=== PATIENT | female | born 1975 | race Caucasian/White ===

== ENCOUNTER 2019-08-03 15:00 | Emergency (ER) | payer OTHER, MEDICAID, SELFPAY ==
[2019-08-03 15:22] VITALS: BP 150/94; PULSE 87; RESP 16; TEMP 37.1; O2SAT 100; BMI 31.9
--- NOTE | 2019-08-03 15:37 | DI.RAD.S_ITS ---
PROCEDURE: XR CHEST 2V INDICATIONS: chest pain / shortness of breath. TECHNIQUE: 2 views of the chest were acquired. COMPARISON: [facility], CHEST 2 VIEW, 08/17/2010, 8:08. [facility], CHEST 2 VIEW, 01/27/2012, 11:26. [facility], CHEST 1 VIEW, 01/26/2012, 4:07. [facility], CHEST 2 VIEW, 08/07/2014, 16:39. FINDINGS: Hair artifact can be seen. Surgical changes and devices: None. Lungs and pleura: Lungs are clear. No pleural effusions or pneumothorax. Mediastinum: Mediastinal contours are normal. Heart size is normal. Bones and chest wall: No suspicious bony abnormalities. Soft tissues appear unremarkable. IMPRESSION: Normal chest plain films. Dictated by: Donal Mcarthur M.D. on 08/03/2019 at 15:07 Approved by: Donal Mcartuhr M.D. on 08/03/2019 at 15:08
[2019-08-03 15:47] LABS: Add Manual Diff / Slide Review NO; Basophils Absolute Auto 100 /uL (0-100); Basophils Percent Auto 1.8 % (0-2); Eosinophils Absolute Auto 200 /uL (0-450); Eosinophils Percent Auto 2.7 % (2-4); Hematocrit 26.8 % (36-46); Hemoglobin 8.1 g/dL (12.0-16.0); Lymphocytes Absolute Auto 2100 /uL (1100-4500); Lymphocytes Percent Auto 29.2 % (25-40); Mean Corpuscular HGB Conc 30.2 % (30-36); Mean Corpuscular Hemoglobin 17.3 PG (26-34); Mean Corpuscular Volume 57.3 fL (80-100); Monocytes Absolute Auto 600 /uL (0-900); Monocytes Percent Auto 9.1 % (3-14); Neutrophils Absolute Auto 4100 /uL (1500-7000); Neutrophils Percent Auto 57.2 % (50-75); Platelet Count 498 X10^3/uL (150-400); Red Blood Cell Count 4.69 X10^6/uL (4.0-5.2); Red Cell Distribution Width 18.8 % (11.6-14.8); White Blood Cell Count 7.1 X10^3/uL (4.5-11.0)
[2019-08-03 15:52] LABS: INR 1.1 (0.9-1.3); Prothrombin Time 12.3 SECONDS (10.1-12.7)
[2019-08-03 15:55] LABS: PTT Partial Thromboplastin Tim 30 SECONDS (26.4-36.2)
--- NOTE | 2019-08-03 15:56 | ED_ITS ---
HPI - SOB/Dyspnea <Angy Juarez, DO - Last Filed: 08/04/19 08:37> General Chief Complaint: Shortness of Breath/Dyspnea Stated Complaint: sob/RLQ pain/palps x3 days ago Time Seen by Provider: 08/03/19 15:55 Source: patient Mode of arrival: Ambulatory Limitations: no limitations History of Present Illness HPI Narrative: This is a 43-year-old female comes to the emergency department with complaint of shortness of breath, chest pain, right upper and right back pain for the past 3 days. Patient states symptoms started the she states that the chest pain and shortened breath have been sort of intermittent, not really associated with thing specific, she states shortness breath might be associated with activity. Nothing seems to make either 1 better. Patient states she has had also some upper back and right upper abdominal pain which he states feels similar to a culture she had the past although that episode was a little bit higher up. Patient states that the upper abdominal back pain has been constant. It feels similar to when she had an ulcer. She states that she has not had back pain in the past. She typically feels cold, she denies any fevers or chills, she denies any upper respiratory cold cough for congestion symptoms. Denies any nausea no vomiting she denies any dizziness or lightheadedness or syncope. She states she has had some watery stools for the past 3 days but no bright red blood or diarrhea. She denies any urinary symptoms. Patient has a history of alpha thalassemia, she states it was found during for genetic testing and that she never saw a ict business analyst or had any follow-up. She states that she has iron intermittently. Patient does take medication also for hypertension, she has had a cholecystectomy, appendectomy and x3 as well as a right shoulder repair. Denies tobacco, alcohol or illicit. Related Data Home Medications Medication Instructions Recorded Confirmed ferrous sulfate 325 mg PO BID 08/03/19 08/03/19 lisinopril 20 mg PO DAILY 08/03/19 08/03/19 Allergies Allergy/AdvReac Type Severity Reaction Status Date / Time latex [LATEX] Allergy Mild HIVES Verified 08/03/19 15:42 Sulfa (Sulfonamide Allergy Mild URTICARIA Verified 08/03/19 15:42 Antibiotics) [SULFA (SULFONAMIDE ANTIBIOTICS)] oxycodone [OXYCODONE] Allergy Unknown Verified 08/03/19 15:42 diphenhydramine AdvReac Intermediate CHF Verified 08/03/19 15:42 [DIPHENHYDRAMINE] ibuprofen [IBUPROFEN] AdvReac Mild GI Verified 08/03/19 15:42 INTOLERANCE Review of Systems <Angy Juarez DO - Last Filed: 08/04/19 08:37> Review of Systems ROS Unobtainable: All systems reviewed & are unremarkable except as noted in HPI and below Patient History <Angy Juarez DO - Last Filed: 08/04/19 08:37> Medical History (Updated 08/03/19 @ 18:16 by Angy Juarez DO) Alpha thalassemia (Acute) Anemia (Acute) Frequent urination (Acute) Heartburn (Acute) Hypertension (Acute) Surgical History (Updated 08/03/19 @ 16:19 by Angy Juarez DO) Hx of appendectomy (Acute) Hx of cholecystectomy (Acute) S/P (Acute) Social History (Updated 08/03/19 @ 16:20 by Angy Juarez DO) Smoking Status: Never smoker alcohol intake: never substance use type: does not use Substance Use Type: does not use Exam <Angy Juarez DO - Last Filed: 08/04/19 08:37> Narrative Exam Narrative: GENERAL: Alert and oriented x three, well-nourished, well- appearing female in mild distress. HEENT: Head normocephalic, atraumatic, EOMI, pupils reactive, face symmetric, moist mucous membranes NECK: Supple, full range of motion CARDIOVASCULAR: Regular rate and rhythm without murmurs, rubs or gallops. RESPIRATORY: Breath sounds equal bilaterally, no wheezes rales or rhonchi. No tachypnea. No accessory muscle use. ABDOMEN: Soft, nontender. Normoactive bowel sounds all 4 quadrants. No guarding or rebound, rigidity, no mass : No CVA tenderness EXTREMITIES: Normal range of motion, no clubbing or edema. Neurovascularly intact NEUROLOGICAL: Cranial nerves II through XII grossly intact. Moving all extremities SKIN: Warm, dry, no petechiae, no rashes or lesions. Initial Vital Signs Initial Vital Signs: Vital Signs Temperature 98.8 F 08/03/19 15:22 Pulse Rate 87 08/03/19 15:22 Respiratory Rate 16 08/03/19 15:22 Blood Pressure 150/94 H 08/03/19 15:22 Pulse Oximetry 100 08/03/19 15:22 <Con Hardwick DO - Last Filed: 08/04/19 08:37> Initial Vital Signs Initial Vital Signs: Vital Signs Temperature 98.8 F 08/03/19 15:22 Pulse Rate 87 08/03/19 15:22 Respiratory Rate 16 08/03/19 15:22 Blood Pressure 150/94 H 08/03/19 15:22 Pulse Oximetry 100 08/03/19 15:22 Course <Angy Juarez DO - Last Filed: 08/04/19 08:37> Orders Ordered: Discontinued Medications Sodium Chloride (Normal Saline 0.9%) 1,000 mls @ 1,000 mls/hr IV BOLUS ONE Stop: 08/03/19 17:14 Last Infusion: 08/03/19 17:45 Dose: 0 mls/hr Documented by: Admin: 08/03/19 16:20 Dose: 1,000 mls/hr Documented by: SHUKRI Ketorolac Tromethamine (Toradol) 15 mg IV NOW ONE Stop: 08/03/19 17:32 Last Admin: 08/03/19 17:45 Dose: 15 mg Documented by: SHUKRI Vital Signs Vital signs: Vital Signs - 8 hr 08/03/19 15:22 08/03/19 16:00 08/03/19 17:49 Temperature 98.8 F Pulse Rate 87 73 74 Respiratory Rate 16 24 20 Blood Pressure 150/94 H Blood Pressure [Left Arm] 115/72 122/65 Pulse Oximetry 100 95 96 <Con Hardwick DO - Last Filed: 08/04/19 08:37> Orders Ordered: Discontinued Medications Sodium Chloride (Normal Saline 0.9%) 1,000 mls @ 1,000 mls/hr IV BOLUS ONE Stop: 08/03/19 17:14 Last Infusion: 08/03/19 17:45 Dose: 0 mls/hr Documented by: Admin: 08/03/19 16:20 Dose: 1,000 mls/hr Documented by: SHUKRI Ketorolac Tromethamine (Toradol) 15 mg IV NOW ONE Stop: 08/03/19 17:32 Last Admin: 08/03/19 17:45 Dose: 15 mg Documented by: SHUKRI Vital Signs Vital signs: Vital Signs - 8 hr 08/03/19 15:22 08/03/19 16:00 08/03/19 17:49 Temperature 98.8 F Pulse Rate 87 73 74 Respiratory Rate 16 24 20 Blood Pressure 150/94 H Blood Pressure [Left Arm] 115/72 122/65 Pulse Oximetry 100 95 96 MDM - SOB/Dyspnea <Angy Juarez DO - Last Filed: 08/04/19 08:37> Lab Data Attestation: I reviewed the patient's lab results. Result diagrams: 08/03/19 15:35 08/03/19 15:35 Labs: Lab Results 08/03/19 08/03/19 08/03/19 Range/Units 15:35 15:35 15:35 WBC 7.1 (4.5-11.0) X10^3/uL RBC 4.69 (4.0-5.2) X10^6/uL Hgb 8.1 L (12.0-16.0) g/dL Hct 26.8 L (36-46) % MCV 57.3 L (80-100) fL MCH 17.3 L (26-34) PG MCHC 30.2 (30-36) % RDW 18.8 H (11.6-14.8) % Plt Count 498 H (150-400) X10^3/uL Neut % (Auto) 57.2 (50-75) % Lymph % (Auto) 29.2 (25-40) % [place] % (Auto) 9.1 (3-14) % Eos % (Auto) 2.7 (2-4) % Baso % (Auto) 1.8 (0-2) % Neut # (Auto) 4100 (4446-1958) /uL Lymph # (Auto) 2100 (9050-5378) /uL [place] # (Auto) 600 (0-900) /uL Eos # (Auto) 200 (0-450) /uL Baso # (Auto) 100 (0-100) /uL RBC Morphology See below Poikilocytosis 2+ H Anisocytosis 1+ H Microcytosis 2+ H Ovalocytes 1+ H PT 12.3 (10.1-12.7) SECONDS INR 1.1 (0.9-1.3) APTT 30 (26.4-36.2) SECONDS Sodium 137 (137-145) mmol/L Potassium 4.1 (3.4-5.1) mmol/L Chloride 105 (98-107) mmol/L Carbon Dioxide 23 (22-32) mmol/L BUN 13 (7-17) mg/dL Creatinine 0.80 (0.52-1.04) mg/dL Estimated GFR > 60.0 (>60) mL/min BUN/Creatinine Ratio 16.3 (6-22) Glucose 103 H (70-100) mg/dL Calcium 8.9 (8.4-10.2) mg/dL Total Bilirubin 0.3 (0.2-1.3) mg/dL AST 19 (14-36) IU/L ALT 20 (9-52) IU/L Alkaline Phosphatase 56 (38-126) U/L Total Creatine Kinase 44 (30-135) U/L CK-MB (CK-2) TNP CK-MB (CK-2) Rel Index TNP Troponin I < 0.012 (0.01-0.034) ng/mL Total Protein 7.6 (6.3-8.2) g/dL Albumin 4.4 (3.5-5.0) g/dL Globulin 3.2 (1.7-4.1) g/dL Albumin/Globulin Ratio 1.4 (1.0-2.8) Lipase 170 (23-300) U/L Point of Care Testing Test Results Negative Urine Dip Bedside Urine Glucose Negative Bedside Urine Bilirubin - Negative Bedside Urine Ketone - Negative Urine Specific [place] 1.020 Bedside Urine Occult Blood - Negative Bedside Urine pH 6.0 Bedside Urine Protein - Negative Bedside Urine Urobilinogen +/- 1mg Bedside Urine Nitrite - Negative Bedside Urine Leukocytes - Negative Esterase Imaging Data Chest x-ray: Radiologist's impression: Tate Duran 43 F [address] [address] XRay Report Signed Patient: Tate Duran LMR#: [id number] : 1975Acct:[id number] Age/Sex: 43 / FDate of Service: 08/03/19 Loc: ED Accession Number: [id number] Procedure: XR chest 2V Ordering Provider: Angy Juarez D.O. PROCEDURE: XR CHEST 2V INDICATIONS: chest pain / shortness of breath. TECHNIQUE: 2 views of the chest were acquired. [facility] 8[facility] 01/27/2012, 11:26[facility], 01/26/2012, 4:07[facility] CHEST [facility], 08/07/2014, 16:39. FINDINGS: Hair artifact can be seen. Surgical changes and devices: None. Lungs and pleura: Lungs are clear. No pleural effusions or pneumothorax. Mediastinum: Mediastinal contours are normal. Heart size is normal. Bones and chest wall: No suspicious bony abnormalities. Soft tissues appear unremarkable. IMPRESSION: Normal chest plain films. Dictated by: Donal Mcarthur M.D. on 08/03/2019 at 15:07 Approved by: Donal Mcarthur M.D. on 08/03/2019 at 15:08 US - abdomen: Radiologist's impression: [place] [address] Ultrasound Report Signed Patient: Tate Duran LMR#: [id number] : 1975Acct:[id number] Age/Sex: 43 / FDate of Service: 08/03/19 Loc: ED Accession Number: [id number] Procedure: US abdomen complete Ordering Provider: Angy Juarez D.O. PROCEDURE: US ABDOMEN COMPLETE INDICATIONS: PAIN TECHNIQUE: Real-time scanning was performed of the abdominal and retroperitoneal organs, with image documentation. COMPARISON: [facility], CT, ABDOMEN/PELVIS WITH CONTRAST, 10/27/2011, 11:03. [facility], , XR CHEST 2V, 08/03/2019, 15:38. FINDINGS: Liver: Liver is normal in size and homogeneous in echotexture. Gallbladder: Removed. Biliary ducts: Intrahepatic bile ducts are non-dilated. Extrahepatic bile duct caliber measures 4 mm. Normal is 6-7 mm or less in diameter, or 10 mm or less post-cholecystectomy. Pancreas: Not seen, obscured by overlying bowel gas. Spleen: Not seen, obscured by overlying bowel gas. Kidneys: Kidneys are normal in size and echotexture. Right kidney measures 13.1 cm long; left kidney measures 13 cm long. No hydronephrosis or nephrolithiasis. No solid masses. Aorta: Visualized aorta is normal in caliber at less than 3 cm. Iliacs: Proximal common iliac arteries are normal in caliber at less than 2.5 cm. IVC: Intrahepatic inferior vena cava is patent. Miscellaneous: No free abdominal fluid. IMPRESSION: Status post cholecystectomy, without biliary dilatation. No imaging explanation is found for this patient's presenting symptoms. Limited study, without visualization of the pancreas or the spleen. Dictated by: Donal Mcarthur M.D. on 08/03/2019 at 16:04 Approved by: Donal Mcarthur M.D. on 08/03/2019 at 16:05 ECG Data Attestation: I personally reviewed and interpreted this ECG as follows: Prior ECG tracings: available for review Interpretation: Sinus rhythm rate of 79 RI 144 QRS 89 and QTC of 419. No ST changes appreciated. RSR in V1. Patient has prior EKG from 08/07/2014 which appears similar. MDM Narrative Medical decision making narrative: Patient's hemoglobin is 8.1 this is improved for her most recent which was in the 7.5 range, white count is 7.1, platelets are 498. Patient's has a microcytic anemia. Negative, CMP shows a glucose of 103 with otherwise normal lab values, troponin is negative. Patient's chest x- ray is negative with an ultrasound does not show any acute findings although difficult to visualize pancreas and spleen. Patient initially deferred any medication but is not often little bit more comfortable and given a dose of Toradol. Her urine is negative for , poc urine shows urobiligen with no other changes. Exact source of patient's discomfort is not found on my suspicion for cardiac, pulmonary or acute chest syndrome is low. Patient has thalassemia sounds like it is not severe but she has seen a ict business analyst before and feel like she may benefit from a consultation. I spoke with Dr. Wilkins and he feels she would benefit from evaluation and asks for her to call the office to get set up for an appointment. <Con Hardwick, DO - Last Filed: 08/04/19 08:37> Lab Data Labs: Lab Results 10/08/03/19 08/03/19 Range/Units 15:35 15:35 15:35 WBC 7.1 (4.5-11.0) X10^3/uL RBC 4.69 (4.0-5.2) X10^6/uL Hgb 8.1 L (12.0-16.0) g/dL Hct 26.8 L (36-46) % MCV 57.3 L (80-100) fL MCH 17.3 L (26-34) PG MCHC 30.2 (30-36) % RDW 18.8 H (11.6-14.8) % Plt Count 498 H (150-400) X10^3/uL Neut % (Auto) 57.2 (50-75) % Lymph % (Auto) 29.2 (25-40) % [place] % (Auto) 9.1 (3-14) % Eos % (Auto) 2.7 (2-4) % Baso % (Auto) 1.8 (0-2) % Neut # (Auto) 4100 (6170-7548) /uL Lymph # (Auto) 2100 (6166-8544) /uL [place] # (Auto) 600 (0-900) /uL Eos # (Auto) 200 (0-450) /uL Baso # (Auto) 100 (0-100) /uL RBC Morphology See below Poikilocytosis 2+ H Anisocytosis 1+ H Microcytosis 2+ H Ovalocytes 1+ H PT 12.3 (10.1-12.7) SECONDS INR 1.1 (0.9-1.3) APTT 30 (26.4-36.2) SECONDS Sodium 137 (137-145) mmol/L Potassium 4.1 (3.4-5.1) mmol/L Chloride 105 (98-107) mmol/L Carbon Dioxide 23 (22-32) mmol/L BUN 13 (7-17) mg/dL Creatinine 0.80 (0.52-1.04) mg/dL Estimated GFR > 60.0 (>60) mL/min BUN/Creatinine Ratio 16.3 (6-22) Glucose 103 H (70-100) mg/dL Calcium 8.9 (8.4-10.2) mg/dL Total Bilirubin 0.3 (0.2-1.3) mg/dL AST 19 (14-36) IU/L ALT 20 (9-52) IU/L Alkaline Phosphatase 56 (38-126) U/L Total Creatine Kinase 44 (30-135) U/L CK-MB (CK-2) TNP CK-MB (CK-2) Rel Index TNP Troponin I < 0.012 (0.01-0.034) ng/mL Total Protein 7.6 (6.3-8.2) g/dL Albumin 4.4 (3.5-5.0) g/dL Globulin 3.2 (1.7-4.1) g/dL Albumin/Globulin Ratio 1.4 (1.0-2.8) Lipase 170 (23-300) U/L Point of Care Testing Test Results Negative Urine Dip Bedside Urine Glucose Negative Bedside Urine Bilirubin - Negative Bedside Urine Ketone - Negative Urine Specific [place] 1.020 Bedside Urine Occult Blood - Negative Bedside Urine pH 6.0 Bedside Urine Protein - Negative Bedside Urine Urobilinogen +/- 1mg Bedside Urine Nitrite - Negative Bedside Urine Leukocytes - Negative Esterase Discharge Plan Departure Patient Disposition: Home Clinical Impression: Thalassemia, Atypical chest pain Discharge Date/Time: 08/03/19 18:27 Instructions: DI for Atypical Chest Pain Activity Restrictions/Additional Instructions: Follow up with hematology, call 's office for evaluation of her thalassemia. Call in the morning for an appointment let them know that Dr. Wilkins is happy to see you. Continue home medications as prescribed. You may take Tylenol up to a 1000 mg every 8 hours, and or ibuprofen up to 800 mg every 8 hours. Return to the emergency department for fevers greater 100.4 F, passing out, rapidly worsening chest or abdominal pain, persistent vomiting, black or bloody stools, new weakness, numbness or other new or concerning symptoms. Prescriptions: No Action lisinopril 20 mg tablet 20 mg PO DAILY RF: 0 ferrous sulfate 325 mg (65 mg iron) Tablet 325 mg PO BID RF: 0 Referrals: Yareli Wilkins MD [Physician] - Cecil Polanco MD [Primary Care Provider] -
[2019-08-03 15:59] LABS: Alanine Aminotransferase 20 IU/L (9-52); Albumin 4.4 g/dL (3.5-5.0); Albumin Globulin Ratio 1.4 (1.0-2.8); Alkaline Phosphatase 56 U/L (38-126); Aspartate Aminotransferase 19 IU/L (14-36); BUN Creatinine Ratio 16.3 (6-22); Bilirubin Total 0.3 mg/dL (0.2-1.3); Blood Urea Nitrogen 13 mg/dL (7-17); Calcium 8.9 mg/dL (8.4-10.2); Carbon Dioxide 23 mmol/L (22-32); Chloride 105 mmol/L (98-107); Creatine Kinase 44 U/L (30-135); Estimated Glomerular Filt Rate > 60.0 mL/min (>60); Globulin 3.2 g/dL (1.7-4.1); Glucose 103 mg/dL (70-100); HEMOLYSIS < 15 (0-50); Lipase 170 U/L (23-300); Potassium 4.1 mmol/L (3.4-5.1); Sodium 137 mmol/L (137-145); Total Protein 7.6 g/dL (6.3-8.2)
[2019-08-03 16:00] VITALS: BP 115/72; PULSE 73; RESP 24; O2SAT 95
[2019-08-03 16:10] LABS: Anisocytosis 1+; Microcytosis 2+; Ovalocytes 1+; Poikilocytosis 2+
[2019-08-03 16:11] LABS: Troponin I < 0.012 ng/mL (0.01-0.034)
--- NOTE | 2019-08-03 16:14 | DI.US.S_ITS ---
PROCEDURE: US ABDOMEN COMPLETE INDICATIONS: PAIN TECHNIQUE: Real-time scanning was performed of the abdominal and retroperitoneal organs, with image documentation. COMPARISON: [facility], CT, ABDOMEN/PELVIS WITH CONTRAST, 10/27/2011, 11:03. [facility], CR, XR CHEST 2V, 08/03/2019, 15:38. FINDINGS: Liver: Liver is normal in size and homogeneous in echotexture. Gallbladder: Removed. Biliary ducts: Intrahepatic bile ducts are non-dilated. Extrahepatic bile duct caliber measures 4 mm. Normal is 6-7 mm or less in diameter, or 10 mm or less post-cholecystectomy. Pancreas: Not seen, obscured by overlying bowel gas. Spleen: Not seen, obscured by overlying bowel gas. Kidneys: Kidneys are normal in size and echotexture. Right kidney measures 13.1 cm long; left kidney measures 13 cm long. No hydronephrosis or nephrolithiasis. No solid masses. Aorta: Visualized aorta is normal in caliber at less than 3 cm. Iliacs: Proximal common iliac arteries are normal in caliber at less than 2.5 cm. IVC: Intrahepatic inferior vena cava is patent. Miscellaneous: No free abdominal fluid. IMPRESSION: Status post cholecystectomy, without biliary dilatation. No imaging explanation is found for this patient's presenting symptoms. Limited study, without visualization of the pancreas or the spleen. Dictated by: Donal Mcarthur M.D. on 08/03/2019 at 16:04 Approved by: Donal Mcarthur M.D. on 08/03/2019 at 16:05
[2019-08-03] MEDS: SODIUM CHLORIDE 0.9% 1,000 ML 1000 ML IV (16:20)
--- NOTE | 2019-08-03 16:39 | PC.NURSE ---
pt reports she has h/o alpha thalessemia. onset of abd pain SOB started yesterday after a visit with PCP for well check. appears well. states shes mildly nauseated but does not vomit due to h/o lap band surgery, having diffuse abd pain. Lungs clear. IV obtained and labs sent and Hgb 8.1 which is increased since her last value of 7.4. appears in good color. attached to cardiac monitoring. US in room for abd US. pt made aware of need of urine. IVF infusing. NAD
[2019-08-03] MEDS: KETOROLAC 60 MG/2 ML VIAL 15 MG IV (17:45)
[2019-08-03 17:49] VITALS: BP 122/65; PULSE 74; RESP 20; O2SAT 96
--- NOTE | 2019-09-26 07:47 | ED.SOB ---
HPI - SOB/Dyspnea General Chief Complaint: Shortness of Breath/Dyspnea Stated Complaint: sob/RLQ pain/palps x3 days ago Time Seen by Provider: 08/03/19 15:55 Source: patient Mode of arrival: Ambulatory Limitations: no limitations History of Present Illness HPI Narrative: Patient was seen by myself on 08/03/19. I do recall seeing the patient. She had complaints of SOB, weakness and chest/abd/back discomfort. Patient was diagnosed during a prior . Unfortunately the initial note was cancelled/deleted and I do not recall the exact details of this encounter in terms of ROS, exam, HPI. Patient was referred to hem/oncology for further evaluation and recommendations, see below in MDM. Related Data Home Medications Medication Instructions Recorded Confirmed ferrous sulfate 325 mg PO BID 08/03/19 08/03/19 lisinopril 20 mg PO DAILY 08/03/19 08/03/19 Allergies Allergy/AdvReac Type Severity Reaction Status Date / Time latex [LATEX] Allergy Mild HIVES Verified 08/03/19 15:42 Sulfa (Sulfonamide Allergy Mild URTICARIA Verified 08/03/19 15:42 Antibiotics) [SULFA (SULFONAMIDE ANTIBIOTICS)] oxycodone [OXYCODONE] Allergy Unknown Verified 08/03/19 15:42 diphenhydramine AdvReac Intermediate CHF Verified 08/03/19 15:42 [DIPHENHYDRAMINE] ibuprofen [IBUPROFEN] AdvReac Mild GI Verified 08/03/19 15:42 INTOLERANCE Patient History Medical History (Updated 08/18/19 @ 00:00 by ) Alpha thalassemia (Acute) Anemia (Acute) Frequent urination (Acute) Heartburn (Acute) Hypertension (Acute) Surgical History (Updated 08/03/19 @ 16:19 by Angy Juarez DO) Hx of appendectomy (Acute) Hx of cholecystectomy (Acute) S/P (Acute) Social History (Updated 08/03/19 @ 16:20 by Angy Juarez DO) Smoking Status: Never smoker alcohol intake: never substance use type: does not use Smoking Status: Never smoker Substance Use Type: does not use Exam Initial Vital Signs Initial Vital Signs: Vital Signs Temperature 98.8 F 08/03/19 15:22 Pulse Rate 87 08/03/19 15:22 Respiratory Rate 16 08/03/19 15:22 Blood Pressure 150/94 H 08/03/19 15:22 Pulse Oximetry 100 08/03/19 15:22 Course Orders Ordered: Discontinued Medications Sodium Chloride (Normal Saline 0.9%) 1,000 mls @ 1,000 mls/hr IV BOLUS ONE Stop: 08/03/19 17:14 Last Infusion: 08/03/19 17:45 Dose: 0 mls/hr Documented by: Admin: 08/03/19 16:20 Dose: 1,000 mls/hr Documented by: SHUKRI Ketorolac Tromethamine (Toradol) 15 mg IV NOW ONE Stop: 08/03/19 17:32 Last Admin: 08/03/19 17:45 Dose: 15 mg Documented by: SHUKRI MDM - SOB/Dyspnea Lab Data Attestation: I reviewed the patient's lab results. Result diagrams: 08/03/19 15:35 08/03/19 15:35 Labs: Lab Results 08/03/19 08/03/19 08/03/19 Range/Units 15:35 15:35 15:35 WBC 7.1 (4.5-11.0) X10^3/uL RBC 4.69 (4.0-5.2) X10^6/uL Hgb 8.1 L (12.0-16.0) g/dL Hct 26.8 L (36-46) % MCV 57.3 L (80-100) fL MCH 17.3 L (26-34) PG MCHC 30.2 (30-36) % RDW 18.8 H (11.6-14.8) % Plt Count 498 H (150-400) X10^3/uL Neut % (Auto) 57.2 (50-75) % Lymph % (Auto) 29.2 (25-40) % [place] % (Auto) 9.1 (3-14) % Eos % (Auto) 2.7 (2-4) % Baso % (Auto) 1.8 (0-2) % Neut # (Auto) 4100 (8089-4466) /uL Lymph # (Auto) 2100 (9757-2757) /uL [place] # (Auto) 600 (0-900) /uL Eos # (Auto) 200 (0-450) /uL Baso # (Auto) 100 (0-100) /uL RBC Morphology See below Poikilocytosis 2+ H Anisocytosis 1+ H Microcytosis 2+ H Ovalocytes 1+ H PT 12.3 (10.1-12.7) SECONDS INR 1.1 (0.9-1.3) APTT 30 (26.4-36.2) SECONDS Sodium 137 (137-145) mmol/L Potassium 4.1 (3.4-5.1) mmol/L Chloride 105 (98-107) mmol/L Carbon Dioxide 23 (22-32) mmol/L BUN 13 (7-17) mg/dL Creatinine 0.80 (0.52-1.04) mg/dL Estimated GFR > 60.0 (>60) mL/min BUN/Creatinine Ratio 16.3 (6-22) Glucose 103 H (70-100) mg/dL Calcium 8.9 (8.4-10.2) mg/dL Total Bilirubin 0.3 (0.2-1.3) mg/dL AST 19 (14-36) IU/L ALT 20 (9-52) IU/L Alkaline Phosphatase 56 (38-126) U/L Total Creatine Kinase 44 (30-135) U/L CK-MB (CK-2) TNP CK-MB (CK-2) Rel Index TNP Troponin I < 0.012 (0.01-0.034) ng/mL Total Protein 7.6 (6.3-8.2) g/dL Albumin 4.4 (3.5-5.0) g/dL Globulin 3.2 (1.7-4.1) g/dL Albumin/Globulin Ratio 1.4 (1.0-2.8) Lipase 170 (23-300) U/L Point of Care Testing Test Results Negative Urine Dip Bedside Urine Glucose Negative Bedside Urine Bilirubin - Negative Bedside Urine Ketone - Negative Urine Specific [place] 1.020 Bedside Urine Occult Blood - Negative Bedside Urine pH 6.0 Bedside Urine Protein - Negative Bedside Urine Urobilinogen +/- 1mg Bedside Urine Nitrite - Negative Bedside Urine Leukocytes - Negative Esterase Imaging Data Chest x-ray: Radiologist's impression: [address] [address] XRay Report Signed Patient: Tate Duran LMR#: [id number] : 1975Acct:[id number] Age/Sex: 43 / FDate of Service: 08/03/19 Loc: ED Accession Number: [id number] Procedure: XR chest 2V Ordering Provider: Angy Juarez D.O. PROCEDURE: XR CHEST 2V INDICATIONS: chest pain / shortness of breath. TECHNIQUE: 2 views of the chest were acquired. COMPARISON: [facility], CHEST 2 VIEW, 08/17/2010, 8:08. [facility], CHEST 2 VIEW, 01/27/2012, 11:26. [facility], CHEST 1 VIEW, 01/26/2012, 4:07. [facility], CHEST 2 VIEW, 08/07/2014, 16:39. FINDINGS: Hair artifact can be seen. Surgical changes and devices: None. Lungs and pleura: Lungs are clear. No pleural effusions or pneumothorax. Mediastinum: Mediastinal contours are normal. Heart size is normal. Bones and chest wall: No suspicious bony abnormalities. Soft tissues appear unremarkable. IMPRESSION: Normal chest plain films. Dictated by: Donal Mcarthur M.D. on 08/03/2019 at 15:07 Approved by: Donal Mcarthur M.D. on 08/03/2019 at 15:08 US - abdomen: Radiologist's impression: [place] [address] Ultrasound Report Signed Patient: Tate Duran LMR#: [id number] : 1975Acct:[id number] Age/Sex: 43 / FDate of Service: 08/03/19 Loc: ED Accession Number: [id number] Procedure: US abdomen complete Ordering Provider: Angy Juarez D.O. PROCEDURE: US ABDOMEN COMPLETE INDICATIONS: PAIN TECHNIQUE: Real-time scanning was performed of the abdominal and retroperitoneal organs, with image documentation. COMPARISON: [facility], CT, ABDOMEN/PELVIS WITH CONTRAST, 10/27/2011, 11:03. [facility], CR, XR CHEST 2V, 08/03/2019, 15:38. FINDINGS: Liver: Liver is normal in size and homogeneous in echotexture. Gallbladder: Removed. Biliary ducts: Intrahepatic bile ducts are non-dilated. Extrahepatic bile duct caliber measures 4 mm. Normal is 6-7 mm or less in diameter, or 10 mm or less post-cholecystectomy. Pancreas: Not seen, obscured by overlying bowel gas. Spleen: Not seen, obscured by overlying bowel gas. Kidneys: Kidneys are normal in size and echotexture. Right kidney measures 13.1 cm long; left kidney measures 13 cm long. No hydronephrosis or nephrolithiasis. No solid masses. Aorta: Visualized aorta is normal in caliber at less than 3 cm. Iliacs: Proximal common iliac arteries are normal in caliber at less than 2.5 cm. IVC: Intrahepatic inferior vena cava is patent. Miscellaneous: No free abdominal fluid. IMPRESSION: Status post cholecystectomy, without biliary dilatation. No imaging explanation is found for this patient's presenting symptoms. Limited study, without visualization of the pancreas or the spleen. Dictated by: Donal Mcarthur M.D. on 08/03/2019 at 16:04 Approved by: Donal Mcarthur M.D. on 08/03/2019 at 16:05 ECG Data Attestation: I personally reviewed and interpreted this ECG as follows: Prior ECG tracings: available for review Interpretation: sinus rhythm, rate of 79, pr of 144, qrs of 89, qtc of 442. NO ST elevation or depresion. RsR in V1. Patient has prior EKG from 08/07/[address]. MDM Narrative Medical decision making narrative: Patient labs were reviewed and reflect anemia, no priors available for comparison in computer. Patient HR and BP were appropriate in ED and not reflecting acute blood loss. Additional labs and imaging including EKG do not show acute process. I cannot recall all exact details of my encounter or discussion with patient but we did discuss the need for follow up with hematology for evaluation of her alpha thalasemia and that she may need some additional intervention, signs/symptoms to watch for and return. Dr. Wilkins from hematology/oncology was consulted and case discussed in order to set up patient for close follow up. Discharge Plan Departure Patient Disposition: Home Clinical Impression: Thalassemia, Atypical chest pain Discharge Date/Time: 08/03/19 18:27 Instructions: DI for Atypical Chest Pain Activity Restrictions/Additional Instructions: Follow up with hematology, call 's office for evaluation of her thalassemia. Call in the morning for an appointment let them know that Dr. Wilkins is happy to see you. Continue home medications as prescribed. You may take Tylenol up to a 1000 mg every 8 hours, and or ibuprofen up to 800 mg every 8 hours. Return to the emergency department for fevers greater 100.4 F, passing out, rapidly worsening chest or abdominal pain, persistent vomiting, black or bloody stools, new weakness, numbness or other new or concerning symptoms. Prescriptions: No Action lisinopril 20 mg tablet 20 mg PO DAILY RF: 0 ferrous sulfate 325 mg (65 mg iron) Tablet 325 mg PO BID RF: 0 Referrals: Yareli Wilkins MD [Physician] - Cecil Polanco MD [Primary Care Provider] -
== END 2019-08-03 18:27 | disposition home or self-care (01) ==
PROVIDERS: Emergency Provider Emergency Medicine; PCP Family Medicine
DX: R07.89 Other chest pain (principal); R06.02 Shortness of breath; R10.31 Right lower quadrant pain
CPT/HCPCS: 36415; 71046; 76700; 80053; 81003; 81025; 82550; 83690; 84484; 85025; 85610; 85730; 93005; 93010; 96361; 96374; 99283; 99285; J1885

== ENCOUNTER 2021-09-16 19:33 | Emergency (ER) | payer OTHER, MEDICAID, SELFPAY ==
[2021-09-16 19:35] VITALS: BP 175/113; PULSE 89; RESP 14; TEMP 36.9; O2SAT 99; BMI 33.4
--- NOTE | 2021-09-16 20:04 | ED_ITS ---
HPI - Skin/Abscess/Foreign Bdy General Chief complaint: Skin/Abscess/Foreign Body Stated complaint: spider bite to rt ear Time Seen by Provider: 09/16/21 19:52 Source: patient Mode of arrival: Ambulatory Limitations: no limitations History of Present Illness HPI narrative: 46-year-old female with here for evaluation of what she describes as a potential spider bite to her right ear. Patient states that last evening she felt like there was something on the right side of her face in the area of her right ear. States that she swatted at the area. Not definitively see anything. She did have some irritation in her right ear. Since that time she is had increasing discomfort and swelling. No problems breathing. She did not definitively see anything bite her. Has not tried anything for the symptoms prior to arrival Related Data Home Medications Medication Instructions Recorded Confirmed ferrous sulfate 325 mg (65 mg 325 mg PO BID 08/03/19 08/03/19 iron) tablet lisinopril 20 mg tablet 20 mg PO DAILY 08/03/19 08/03/19 Previous Rx's Medication Instructions Recorded ofloxacin 0.3 % ear drops 10 drp EAR-RIGHT DAILY 7 Days #5 ml 09/16/21 Allergies Allergy/AdvReac Type Severity Reaction Status Date / Time latex [LATEX] Allergy Mild HIVES Verified 09/16/21 19:39 Sulfa (Sulfonamide Allergy Mild URTICARIA Verified 09/16/21 19:39 Antibiotics) [SULFA (SULFONAMIDE ANTIBIOTICS)] oxycodone [OXYCODONE] Allergy Unknown Verified 09/16/21 19:39 fentanyl Allergy Verified 09/16/21 19:40 morphine Allergy Verified 09/16/21 19:40 diphenhydramine AdvReac Intermediate CHF Verified 09/16/21 19:39 [DIPHENHYDRAMINE] ibuprofen [IBUPROFEN] AdvReac Mild GI Verified 09/16/21 19:39 INTOLERANCE Review of Systems Constitutional Constitutional: Reports system reviewed and no additional complaints, except as documented ENT Ears, Nose, Mouth, and Throat: Reports system reviewed and no additional compl aints, except as documented and Reports as per HPI Integumentary/Breasts Skin/Breast: Reports system reviewed and no additional complaints, except as d ocumented Neurologic Neurologic: Reports system reviewed and no additional complaints, except as documented Hematologic/Lymphatic On Anticoagulants: No Allergic/Immunologic Allergic/Immunologic: Reports system reviewed and no additional complaints, exce pt as documented Patient History Medical History Alpha thalassemia Anemia Frequent urination Heartburn Hypertension Surgical History (Updated 08/03/19 @ 16:19 by Angy Juarez DO) Hx of appendectomy Hx of cholecystectomy S/P Social History Smoking Status: Never smoker alcohol intake: never substance use type: does not use Smoking Status: Never smoker alcohol intake frequency: holidays/special occasions only Substance Use Type: does not use Exam Initial Vital Signs Initial Vital Signs: Vital Signs Temperature 98.5 F 09/16/21 19:35 Pulse Rate 89 09/16/21 19:35 Respiratory Rate 14 09/16/21 19:35 Blood Pressure 175/113 H 09/16/21 19:35 Pulse Oximetry 99 09/16/21 19:35 HENMT Head: normal to inspection, normocephalic, atraumatic and No abrasion Ears: hearing grossly normal bilaterally, TM normal on the right, TM normal on the left, mastoids normal, EAC abnormal erythema on the right, edema on the right and EAC tenderness on the right and periauricular adenopathy on the right Face and sinus: normal facial exam Mouth: oral mucosae normal Teeth and gingiva: dentition normal Throat: posterior oropharynx normal Neck Lymphatic: lymphadenopathy Resp Effort & Inspection: normal respiratory effort Skin General: no rashes or lesions noted Neuro General: patient alert and patient awake Extrem General: normal to inspection Psych Appearance: grossly normal and well kempt Course Vital Signs Vital signs: Vital Signs - 8 hr 09/16/21 19:35 Temperature 98.5 F Pulse Rate 89 Respiratory Rate 14 Blood Pressure 175/113 H Pulse Oximetry 99 MDM - Skin/Abscess/Foreign Bdy MDM Narrative Medical decision making narrative: There was no foreign body noted in the right ear however she did have swelling and findings consistent with otitis externa. Her tympanic membrane on the right was unremarkable. She did have some preauricular lymph nodes on the right. Plan will be is to start her on ear drops for otitis externa. She was given return precautions and follow-up instructions. She expressed understanding and agreement. Discharge Plan Departure Patient Disposition: Home Clinical Impression: Otitis externa, Lymphadenopathy Instructions: DI for Otitis Externa Prescriptions: New ofloxacin 0.3 % drops 10 drp EAR-RIGHT DAILY 7 Days Qty: 5 0RF No Action lisinopril 20 mg tablet 20 mg PO DAILY 0RF ferrous sulfate 325 mg (65 mg iron) Tablet 325 mg PO BID 0RF Referrals: Cecil Polanco MD [Primary Care Provider] -
--- NOTE | 2021-09-16 20:37 | PC.NURSE ---
Pt called requesting prescription to sent to different pharmacy. [facility] closed at 8. Pt requested prescription to be sent to [facility] in [place]. Called in as per request.
== END 2021-09-16 20:12 | disposition home or self-care (01) ==
PROVIDERS: Emergency Provider Emergency Medicine; PCP Family Medicine
DX: H60.91 Unspecified otitis externa, right ear (principal); R59.1 Generalized enlarged lymph nodes
CPT/HCPCS: 99281